=== PATIENT | female | born 1970 | race African-American/Black ===

== ENCOUNTER 2019-05-24 13:58 | Emergency (ER) | payer SELFPAY ==
[~2019-05-24] VITALS: Ht 170.2 cm; Wt 49.9 kg
[2019-05-24 14:00] VITALS: BP_SYST 110
[2019-05-24 16:55] VITALS: BP_SYST 117
== END 2019-05-24 16:53 | disposition home or self-care (01) ==
LOC: SED 13:58
DX: B86 Scabies (principal); Z88.5 Allergy status to narcotic agent
CPT/HCPCS: 99281

== ENCOUNTER 2019-10-08 22:49 | Emergency (ER) | payer MEDICAID ==
[~2019-10-08] VITALS: Ht 170.2 cm; Wt 50.8 kg
[2019-10-08 23:04] VITALS: BP_SYST 104
--- NOTE | 2019-10-08 23:08 | NUR ---
tPatient triaged and placed in waiting room. VSS and patient appears in no acute distress at this time. Accompanied by family, awaiting available bed, and MD notified of need for MSE.
--- NOTE | 2019-10-09 00:38 | NUR ---
Patient to ER bed 2 to gown for evaluation. Side rails up. Report given to NAHED Conn.
--- NOTE | 2019-10-09 00:40 | NUR ---
PLACED IN BED 2. HERE FOR FEVERS,COUGH,RUNNY NOSE,SORE THROAT, GENERALIZED BODY ACHES. AWAITING EVALUATION BY ER-MD.
--- NOTE | 2019-10-09 01:45 | NUR ---
ER-MD AT BEDSIDE EVALUATING PT.
[2019-10-09] MEDS ORDERED: AMOXICILLIN 500 MG CAPSULE PO ONE (02:00)
--- NOTE | 2019-10-09 02:18 | NUR ---
AMOXICILLIN 500 MG PO GIVENAS ORDERED.
--- NOTE | 2019-10-09 02:20 | NUR ---
DISCHARGED STABLE. PRESCRIPTION,VERBAL AND WRITTEN AFTERCARE INSTRUCTIONS GIVEN. VERBALIZED UNDERSTANDING. LEFT AMBULATORY WITH STABLE GAIT.
[2019-10-09 02:25] VITALS: BP_SYST 127
== END 2019-10-09 02:25 | disposition home or self-care (01) ==
LOC: SED 22:49
DX: J20.9 Acute bronchitis, unspecified (principal); F17.210 Nicotine dependence, cigarettes, uncomplicated; Z71.6 Tobacco abuse counseling
CPT/HCPCS: 36415; 86710; 99283

== ENCOUNTER 2023-10-26 05:02 | Emergency (ER) | payer MEDICAID ==
[~2023-10-26] VITALS: Ht 170.2 cm; Wt 50.8 kg
[2023-10-26 05:11] VITALS: BP_SYST 133; PULSE 79; RESP 16; TEMP 97.7; O2SAT 96
[2023-10-26] MEDS ORDERED: NITR-85 PO (05:38)
[2023-10-26] MEDS ORDERED: TOBR5DRO2 OP (05:38)
[2023-10-26 05:43] LABS: BILIRUBIN,URINE NEGATIVE (NEGATIVE); COLOR,URINE YELLOW (YELLOW); GLUCOSE,URINE NEGATIVE (NEGATIVE); KETONES,URINE NEGATIVE (NEGATIVE); LEUKOCYTE ESTERASE ,URINE 1+ (NEGATIVE); NITRITE, URINE NEGATIVE (NEGATIVE); PH,URINE 6.5 (5.0-8.0); PROTEIN URINE NEGATIVE (NEGATIVE); UROBILINOGEN,URINE 0.2 (0.2-1.0)
[2023-10-26 05:55] VITALS: BP_SYST 133; PULSE 79; RESP 16; TEMP 97.7; O2SAT 96
[2023-10-26 06:28] LABS: BLOOD, URINE TRACE (NEGATIVE); CLARITY/URINE SLIGHTLY CLOUDY (CLEAR)
[2023-10-26 06:29] LABS: BACTERIA,URINE MODERATE /HPF (None Seen); WBC,URINE 20-50 /HPF (0-3)
== END 2023-10-26 05:55 | disposition home or self-care (01) ==
LOC: SED 05:02
DX: H10.89 Other conjunctivitis (principal); N39.0 Urinary tract infection, site not specified; R35.0 Frequency of micturition; R39.15 Urgency of urination; Z88.0 Allergy status to penicillin; Z88.5 Allergy status to narcotic agent; Z79.899 Other long term (current) drug therapy
CPT/HCPCS: 81000; 81001; 81015; 87086; 99283

== ENCOUNTER 2024-01-09 17:07 | Emergency (ER) | payer MEDICAID ==
[~2024-01-09] VITALS: Ht 170.2 cm; Wt 53.5 kg
[~2024-01-09 17:07] MED LIST: NITR-85 PO; TOBR5DRO2 OP
[2024-01-09 17:32] VITALS: BP_SYST 124; PULSE 69; RESP 18; TEMP 97.4; O2SAT 99
[2024-01-09] MEDS: BACITRACIN 1 GM OINT TP ONE (20:10)
[2024-01-09] MEDS: DIPHTH,PERTUSS(ACELL),TET VAC 0.5 ML VIAL (Tdap) I.M. ONE (20:12)
[2024-01-09] MEDS ORDERED: NEOM28.37 TP (20:13)
[2024-01-09 20:20] VITALS: BP_SYST 122; PULSE 67; RESP 18; TEMP 97.7; O2SAT 98
== END 2024-01-09 20:20 | disposition home or self-care (01) ==
LOC: SED 17:07
DX: S61.412A Laceration without foreign body of left hand, initial encounter (principal); Z88.0 Allergy status to penicillin; Z88.5 Allergy status to narcotic agent; Z79.899 Other long term (current) drug therapy; W25.XXXA Contact with sharp glass, initial encounter; Y93.89 Activity, other specified; Y92.89 Other specified places as the place of occurrence of the external cause; Y99.8 Other external cause status
CPT/HCPCS: 90715; 99283